=== PATIENT | male | born 1960 | race Caucasian/White ===

== ENCOUNTER 2018-07-08 11:26 | Inpatient (IN) | payer SELFPAY ==
[2018-07-08] MEDS ORDERED: NORMAL SALINE 1000 ML 1,000 ML IV ONE ×2 (11:47→13:08)
--- NOTE | 2018-07-08 11:47 | ER Document Report ---
ED Medical Screen (RME) - General Chief Complaint: Breathing Difficulty Stated Complaint: DIFFICULTY BREATHING Time Seen by Provider: 07/08/18 11:34 TRAVEL OUTSIDE OF THE [place] IN LAST 30 DAYS: No - HPI Patient complains to provider of: Dizziness, diaphoresis, shortness of breath, chest pain/abdominal pain Notes: 07/08/18 11:46 Patient is a 57-year-old male presenting to the emergency room today complaining of shortness of breath, diaphoresis, chest pain/abdominal pain, dizziness, symptoms have been worsening over the past 2-3 days, patient took his blood pressure medication approximately 1 hour prior to coming to the ER 07/08/18 11:47 RAPID MEDICAL EVALUATION DISCLOSURE I have seen this patient as part of a Rapid Medical Evaluation and, if applicable, placed any initially appropriate orders. The patient will be seen and fully evaluated, including a full history and physical exam, by a provider (in Main ED or Fast Track) when a room becomes available. - Related Data Allergies/Adverse Reactions: No Known Allergies Allergy (Verified 07/08/18 11:27) Physical Exam - Vital signs Vitals: Temp Pulse Resp BP Pulse Ox 97.8 F 169 H 20 92/58 L 100 07/08/18 11:35 07/08/18 11:35 07/08/18 11:35 07/08/18 11:35 07/08/18 11:35 Course - Vital Signs Vital signs: Temp Pulse Resp BP Pulse Ox 97.8 F 169 H 20 92/58 L 100 07/08/18 11:35 07/08/18 11:35 07/08/18 11:35 07/08/18 11:35 07/08/18 11:35
[2018-07-08] MEDS ORDERED: DILTIAZEM HCL/D5W 125 MG/125 ML RTUINJ IV ONE ×2 (12:09→22:20)
[2018-07-08] MEDS ORDERED: DILTIAZEM HCL INJ 25 MG/5 ML VIAL ONE (12:09)
[2018-07-08] MEDS ORDERED: DILTIAZEM HCL INJ 25 MG/5 ML VIAL IV ONE (12:10)
[2018-07-08] MEDS ORDERED: DILTIAZEM HCL/D5W 125 MG/125 ML RTUINJ IV PRN (12:10)
--- NOTE | 2018-07-08 12:19 | ER Document Report ---
ED General - General Chief Complaint: Breathing Difficulty Stated Complaint: DIFFICULTY BREATHING Time Seen by Provider: 07/08/18 11:34 Mode of Arrival: Ambulatory Information source: Patient Notes: 57-year-old male brought to the emergency department for complaints of difficulty breathing, lightheadedness, nonproductive cough. Patient states that he had an episode of this on Saturday that resolved. He states that this morning he began having the symptoms again. Patient denies any medical problems besides hypertension. He states that he is on one antihypertensive but does not remember what the name of it is. Patient denies any hyperlipidemia, diabetes, family history of coronary artery disease, history of coronary artery disease in himself, history of stents. He also denies any recent travel, recent surgeries, lower extremity swelling or pain, history of DVT or PE. Patient also notes that he has had intermittent left upper quadrant abdominal pain. He states that he will get the pain it will last a minute and then resolve on its own. He is not currently having any abdominal pain. He denies any nausea, vomiting, diarrhea, constipation, dysuria, hematuria. TRAVEL OUTSIDE OF THE [place] IN LAST 30 DAYS: No - HPI Onset: Just prior to arrival Onset/Duration: Sudden Quality of pain: No pain Severity: None Pain Level: Denies Associated symptoms: Nonproductive cough, Shortness of breath Exacerbated by: Denies Relieved by: Denies Similar symptoms previously: Yes Recently seen / treated by doctor: No - Related Data Allergies/Adverse Reactions: No Known Allergies Allergy (Verified 07/08/18 11:27) Past Medical History - General Information source: Patient - Social History Smoking Status: Unknown if Ever Smoked Chew tobacco use (# tins/day): No Frequency of alcohol use: None Drug Abuse: None Family History: Reviewed & Not Pertinent Patient has suicidal ideation: No Patient has homicidal ideation: No - Past Medical History Cardiac Medical History: Reports: Hx Hypertension Renal/ Medical History: Denies: Hx Peritoneal Dialysis Review of Systems - Review of Systems Constitutional: No symptoms reported EENT: No symptoms reported Cardiovascular: Heart racing, Lightheaded Respiratory: Cough Gastrointestinal: No symptoms reported Genitourinary: No symptoms reported Male Genitourinary: No symptoms reported Musculoskeletal: No symptoms reported Skin: No symptoms reported Hematologic/Lymphatic: No symptoms reported Neurological/Psychological: No symptoms reported -: Yes All other systems reviewed and negative Physical Exam - Vital signs Vitals: Temp Pulse Resp BP Pulse Ox 97.8 F 169 H 20 92/58 L 100 07/08/18 11:35 07/08/18 11:35 07/08/18 11:35 07/08/18 11:35 07/08/18 11:35 - Notes Notes: PHYSICAL EXAMINATION: GENERAL: Well-appearing, well-nourished and in no acute distress. HEAD: Atraumatic, normocephalic. EYES: Pupils equal round and reactive to light, extraocular movements intact, sclera anicteric, conjunctiva are normal. ENT: Nares patent, oropharynx clear without exudates. Moist mucous membranes. NECK: Normal range of motion, supple without lymphadenopathy LUNGS: Breath sounds clear to auscultation bilaterally and equal. No wheezes rales or rhonchi. HEART: Atrial fibrillation. S1S2. ABDOMEN: Soft, nontender, nondistended abdomen. No guarding, no rebound. No masses appreciated. Musculoskeletal: Normal range of motion, no pitting or edema. No cyanosis. NEUROLOGICAL: Cranial nerves grossly intact. Normal speech, normal gait. Normal sensory, motor exams PSYCH: Normal mood, normal affect. SKIN: Warm, Dry, normal turgor, no rashes or lesions noted. Course - Re-evaluation Re-evalutation: 07/08/18 12:19 EKG: Ventricular rate 138, NC interval 0, castration 82, QTc 455, atrial fibrillation. No ST segment elevation. 07/08/18 13:44 EKG: Ventricular rate 98, QRS duration 84, QTc 486, atrial fibrillation. No ischemic changes. 07/08/18 16:28 Repeat EKG: Ventricular rate 73, NC interval 192, castration 82, QTc 349, normal sinus rhythm. No ST segment elevation. 07/08/18 16:50 Labs and imaging obtained. Patient has an elevated BUN and creatinine. Fluids were started. Patient received 2 L of normal saline while in the emergency permit. Troponin is 0.048. No ST segment elevation on the EKG. Patient was given 25 mg of Cardizem bolus and started on a Cardizem drip. Over time patient's rhythm went back into normal sinus rhythm. Patient's d-dimer came back elevated. A VQ scan was ordered. No PE. With the patient's abnormal labs that I will admit the patient to the hospitalist for further workup. Patient states that he does not have a primary care physician. - Vital Signs Vital signs: Temp Pulse Resp BP Pulse Ox 97.8 F 169 H 18 136/80 H 96 07/08/18 11:35 07/08/18 11:35 07/08/18 16:00 07/08/18 14:21 07/08/18 16:00 - Laboratory Result Diagrams: 07/08/18 12:02 07/08/18 12:02 Laboratory results interpreted by me: 07/08/18 07/08/18 07/08/18 12:02 12:02 12:02 WBC 12.0 H D-Dimer 1.35 H Chloride 97 L BUN 53 H Creatinine 5.57 H Est GFR ( Amer) 13 L Est GFR (Non-Af Amer) 11 L Glucose 138 H Direct Bilirubin 0.5 H Urine Blood 07/08/18 15:30 WBC D-Dimer Chloride BUN Creatinine Est GFR ( Amer) Est GFR (Non-Af Amer) Glucose Direct Bilirubin Urine Blood SMALL H Discharge - Discharge Clinical Impression: Atrial fibrillation Qualifiers: Atrial fibrillation type: unspecified Qualified Code(s): I48.91 - Unspecified atrial fibrillation Renal failure Qualifiers: Renal failure chronicity: acute Acute renal failure type: unspecified Qualified Code(s): N17.9 - Acute kidney failure, unspecified Condition: Stable Disposition: ADMITTED OBSERVATION Admitting Provider: Hospitalist Unit Admitted: [facility]
[2018-07-08 12:30] LABS: ABSOLUTE BASOPHILS # (AUTO) 0.1 10^3/uL (0.0-0.2); ABSOLUTE EOSINOPHILS # (AUTO) 0.1 10^3/uL (0.0-0.6); ABSOLUTE LYMPHOCYTES (AUTO) 2.6 10^3/uL (0.5-4.7); ABSOLUTE MONOCYTES (AUTO) 1.2 10^3/uL (0.1-1.4); EOSINOPHILS % (AUTO) 1.1 % (0-6); HEMOGLOBIN 14.2 g/dL (13.5-17.0); LYMPHOCYTES % (AUTO) 21.4 % (13-45); MEAN CORPUSCULAR HEMOGLOBIN 29.8 pg (27.0-33.4); MEAN CORPUSCULAR HGB CONC 34.6 g/dL (32.0-36.0); MEAN CORPUSCULAR VOLUME 86 fl (80-97); MONOCYTES % (AUTO) 10.3 % (3-13); PLATELET COUNT 320 10^3/uL (150-450); RED BLOOD COUNT 4.76 10^6/uL (4.35-5.55); RED CELL DISTRIBUTION WIDTH 13.5 % (11.5-14.0); SEGMENTED NEUTROPHILS % (AUTO) 66.2 % (42-78); TOTAL CELLS COUNTED % (AUTO) 100 %
[2018-07-08 12:33] LABS: INTERNATIONAL RATION (INR) 0.96; PROTHROMBIN TIME 13.3 SEC (11.4-15.4)
[2018-07-08 12:34] LABS: PARTIAL THROMBOPLASTIN TIME 31.2 SEC (23.5-35.8)
[2018-07-08 12:36] LABS: D-DIMER 1.35 ug/mL (0.00-0.50)
[2018-07-08 12:54] LABS: ALANINE AMINOTRANSFERASE 29 U/L (21-72); ALBUMIN 4.6 g/dL (3.5-5.0); ALKALINE PHOSPHATASE 88 U/L (38-126); ANION GAP 19 (5-19); ASPARTATE AMINO TRANSFERASE 27 U/L (17-59); BILIRUBIN,DIRECT 0.5 mg/dL (0.0-0.4); BILIRUBIN,TOTAL 0.8 mg/dL (0.2-1.3); BLOOD UREA NITROGEN 53 mg/dL (7-20); CALCIUM 9.2 mg/dL (8.4-10.2); CARBON DIOXIDE 23 mmol/L (22-30); CHLORIDE 97 mmol/L (98-107); GLUCOSE 138 mg/dL (75-110); LIPASE 72.6 U/L (23-300); POTASSIUM 3.8 mmol/L (3.6-5.0); SODIUM 138.7 mmol/L (137-145); TOTAL PROTEIN 7.6 g/dL (6.3-8.2)
[2018-07-08 13:06] LABS: TROPONIN I 0.048 ng/mL
--- NOTE | 2018-07-08 13:09 | RADIOLOGY REPORT (SQ) ---
EXAM DESCRIPTION: CHEST 2 VIEWS COMPLETED DATE/TIME: 07/08/2018 12:59 pm REASON FOR STUDY: cp COMPARISON: None. EXAM PARAMETERS: NUMBER OF VIEWS: two views TECHNIQUE: Digital Frontal and Lateral radiographic views of the chest acquired. RADIATION DOSE: NA LIMITATIONS: none FINDINGS: LUNGS AND PLEURA: No opacities, masses or pneumothorax. No pleural effusion. MEDIASTINUM AND HILAR STRUCTURES: No masses or contour abnormalities. HEART AND VASCULAR STRUCTURES: Heart normal size. No evidence for failure. BONES: No acute findings. HARDWARE: None in the chest. OTHER: No other significant finding. IMPRESSION: NO ACUTE RADIOGRAPHIC FINDING IN THE CHEST. TECHNICAL DOCUMENTATION: JOB ID: [id number] [email or web address]- All Rights Reserved Reading location - IP/workstation name: [email or web address]
[2018-07-08 15:54] LABS: APPEARANCE,URINE CLOUDY; BILIRUBIN,URINE NEGATIVE (NEGATIVE); COLOR,URINE YELLOW; GLUCOSE, URINE NEGATIVE (NEGATIVE); KETONES,URINE NEGATIVE (NEGATIVE); LEUKOCYTE ESTERASE,URINE NEGATIVE (NEGATIVE); NITRITE,URINE NEGATIVE (NEGATIVE); PROTEIN,URINE NEGATIVE (NEGATIVE); URINE SPECIFIC GRAVITY 1.009; UROBILINOGEN,URINE NEGATIVE mg/dL (<2.0)
--- NOTE | 2018-07-08 15:59 | EKG REPORT ---
SEVERITY:- ABNORMAL ECG - ATRIAL FIBRILLATION, V-RATE 68-140 BORDERLINE PROLONGED QT INTERVAL : Confirmed by: Renny Romero MD 08-Jul-2018 15:58:14
--- NOTE | 2018-07-08 15:59 | EKG REPORT ---
SEVERITY:- ABNORMAL ECG - ATRIAL FIBRILLATION, V-RATE 116-174 BORDERLINE LEFT AXIS DEVIATION : Confirmed by: Renny Romero MD 08-Jul-2018 15:58:43
--- NOTE | 2018-07-08 16:32 | RADIOLOGY REPORT (SQ) ---
EXAM DESCRIPTION: NM LUNG VENT/PERF SCAN COMPLETED DATE/TIME: 07/08/2018 4:24 pm REASON FOR STUDY: shortness of breath COMPARISON: None. RADIONUCLIDE AND DOSE: 5.0 millicuries TC-99m MAA Intravenous 30.0 millicuries TC-99m DTPA Inhaled aerosol TECHNIQUE: Eight views of the lungs acquired post ventilation of DTPA aerosol. Eight matching views of the lungs acquired following injection of MAA. LIMITATIONS: None. FINDINGS: VENTILATION: Symmetric and homogeneous distribution of DTPA aerosol during ventilatory pha se. No significant areas of photopenia. PERFUSION: Perfusion images with normal homogenous activity and no wedge-shaped or segmental defects. No ventilation-perfusion mismatches. OTHER: No other significant finding. IMPRESSION: Normal scintigraphic pulmonary ventilation perfusion scan (PE absent). TECHNICAL DOCUMENTATION: JOB ID: [id number] [employer]- All Rights Reserved Reading location - IP/workstation name: [email or web address]
[2018-07-08] MEDS ORDERED: HEPARIN SODIUM,PORCINE/D5W 25,000 UNIT/250 ML RTUINJ IV PRN (17:40)
[2018-07-08] MEDS ORDERED: HEPARIN SOD (PORCINE) 1,000 UNIT/ML 10 ML VIAL IV ONE (17:40)
[2018-07-08 18:41] LABS: ANION GAP 14 (5-19); BLOOD UREA NITROGEN 46 mg/dL (7-20); CALCIUM 8.8 mg/dL (8.4-10.2); CARBON DIOXIDE 26 mmol/L (22-30); CHLORIDE 100 mmol/L (98-107); GLUCOSE 126 mg/dL (75-110); POTASSIUM 3.8 mmol/L (3.6-5.0); SODIUM 140.1 mmol/L (137-145)
--- NOTE | 2018-07-08 19:25 | RADIOLOGY REPORT (SQ) ---
EXAM DESCRIPTION: CT ABD/PELVIS NO ORAL OR IV COMPLETED DATE/TIME: 07/08/2018 5:57 pm REASON FOR STUDY: acute renal failure COMPARISON: None. TECHNIQUE: CT scan of the abdomen and pelvis performed without intravenous or oral contrast. Images reviewed with lung, soft tissue, and bone windows. Reconstructed coronal and sagittal MPR images revi ewed. All images stored on PACS. All CT scanners at this facility use dose modulation, iterative reconstruction, and/or weight based d osing when appropriate to reduce radiation dose to as low as reasonably achievable (ALARA). [facility]: Dose Right [facility]: CareDose [facility]: Dose Right [facility]: Teradose 4D [facility]: Smart Microbonds RADIATION DOSE: CT Rad equipment meets quality standard of care and radiation dose reduction techniq ues were employed. CTDIvol: 11.5 mGy. DLP: 676 mGy-cm.mGy. LIMITATIONS: None. FINDINGS: LOWER CHEST: No significant findings. No nodules or infiltrates. NON-CONTRASTED LIVER, SPLEEN, ADRENALS: Evaluation limited by lack of IV contrast. No identified sign ificant masses. PANCREAS: No masses. No peripancreatic inflammatory changes. GALLBLADDER: No identified stones by CT criteria. No inflammatory changes to suggest cholecystitis. RIGHT KIDNEY AND URETER: No suspicious masses. Assessment limited by lack of IV contrast. No signif icant calcifications. No hydronephrosis or hydroureter. LEFT KIDNEY AND URETER: No suspicious masses. Assessment limited by lack of IV contrast. No signifi cant calcifications. No hydronephrosis or hydroureter. AORTA AND RETROPERITONEUM: No aneurysm. No retroperitoneal masses or adenopathy. BOWEL AND PERITONEAL CAVITY: No obvious masses or inflammatory changes. No free fluid. APPENDIX: Normal. PELVIS, BLADDER, AND ABDOMINAL WALL:No abnormal masses. No free fluid. Bladder normal. BONES: No significant findings. OTHER: No other significant finding. IMPRESSION: NO SIGNIFICANT OR ACUTE PROCESS IN THE ABDOMEN OR PELVIS. COMMENT: Quality ID # [id number]: Final reports with documentation of one or more dose reduction techniques (e.g., Automated exposure control, adjustment of the mA and/or kV according to patient size, use of iterative reconstruction technique) TECHNICAL DOCUMENTATION: JOB ID: [id number] [employer]- All Rights Reserved Reading location - IP/workstation name: [email or web address]
[2018-07-08] MEDS: NORMAL SALINE 1000 ML 1,000 ML IV PRN (19:50)
[2018-07-08] MEDS ORDERED: HEPARIN SOD (PORCINE) 1,000 UNIT/ML 10 ML VIAL IV PRN (20:42)
[2018-07-09 01:57] LABS: HEMATOCRIT 36.3 % (37.9-51.0); HEMOGLOBIN 12.7 g/dL (13.5-17.0); MEAN CORPUSCULAR HEMOGLOBIN 30.2 pg (27.0-33.4); MEAN CORPUSCULAR HGB CONC 35.1 g/dL (32.0-36.0); MEAN CORPUSCULAR VOLUME 86 fl (80-97); PLATELET COUNT 249 10^3/uL (150-450); RED BLOOD COUNT 4.22 10^6/uL (4.35-5.55); RED CELL DISTRIBUTION WIDTH 13.7 % (11.5-14.0); WHITE BLOOD COUNT 7.7 10^3/uL (4.0-10.5)
--- NOTE | 2018-07-09 08:13 | EKG REPORT ---
SEVERITY:- BORDERLINE ECG - SINUS RHYTHM DIFFUSE NONSPECIFIC ST-T CAHNGES ANTEROLATERAL LEADS : Confirmed by: Renny Romero MD 09-Jul-2018 08:12:06
[2018-07-09] MEDS: METOPROLOL TARTRATE 25 MG TABLET PO SCH ×2 (08:31→21:30)
[2018-07-09 09:07] LABS: ABSOLUTE BASOPHILS # (AUTO) 0.1 10^3/uL (0.0-0.2); ABSOLUTE EOSINOPHILS # (AUTO) 0.1 10^3/uL (0.0-0.6); ABSOLUTE LYMPHOCYTES (AUTO) 2.2 10^3/uL (0.5-4.7); ABSOLUTE MONOCYTES (AUTO) 0.6 10^3/uL (0.1-1.4); ABSOLUTE NEUT (AUTO) 3.8 10^3/uL (1.7-8.2); EOSINOPHILS % (AUTO) 2.1 % (0-6); HEMATOCRIT 35.2 % (37.9-51.0); HEMOGLOBIN 12.4 g/dL (13.5-17.0); LYMPHOCYTES % (AUTO) 32.6 % (13-45); MEAN CORPUSCULAR HEMOGLOBIN 30.3 pg (27.0-33.4); MEAN CORPUSCULAR HGB CONC 35.2 g/dL (32.0-36.0); MEAN CORPUSCULAR VOLUME 86 fl (80-97); MONOCYTES % (AUTO) 9.2 % (3-13); PLATELET COUNT 247 10^3/uL (150-450); RED CELL DISTRIBUTION WIDTH 13.4 % (11.5-14.0); SEGMENTED NEUTROPHILS % (AUTO) 55.1 % (42-78); TOTAL CELLS COUNTED % (AUTO) 100 %; WHITE BLOOD COUNT 6.8 10^3/uL (4.0-10.5)
[2018-07-09 09:16] LABS: ANION GAP 9 (5-19); BLOOD UREA NITROGEN 37 mg/dL (7-20); CALCIUM 8.7 mg/dL (8.4-10.2); CARBON DIOXIDE 24 mmol/L (22-30); CHLORIDE 107 mmol/L (98-107); GLUCOSE 136 mg/dL (75-110); POTASSIUM 4.2 mmol/L (3.6-5.0); SODIUM 140.2 mmol/L (137-145)
--- NOTE | 2018-07-09 12:54 | PDOC H&P ---
History of Present Illness Admission Date/PCP: 07/08/18 17:09 Patient complains of: SOB, palpitations History of Present Illness: DEYSI LARA is a 57 year old male with a history of bipolar disorder and hypertension (unable to recall antihypertensive he is on) who presented with sudden onset palpitations around 7 am today associated with shortness of breath and dizziness. He says he also became sweaty. He denies having chest pain. In the ER, he was noted to be in Afib w/ RVR with Hr in the 150s, initial BP of 98/60. He was given cardizem bolus and was started on a cardizem drip. He converted to sinus rhythm while on the cardizem drip. Upon encounter, he denies chest pain or SOB. He denies prior history of Afib but says he had chronic on and off palpitations and has been treated for anxiety and panic attacks before. Past Medical History Cardiac Medical History: Reports: Hypertension Social History Smoking Status: Unknown if Ever Smoked Family History Family History: Reviewed & Not Pertinent Parental Family History Reviewed: Yes - no premature CAD Children Family History Reviewed: No Sibling(s) Family History Reviewed.: No Medication/Allergy Home Medications: Lisinopril [Prinivil] 20 mg PO DAILY 07/08/18 Allergies/Adverse Reactions: No Known Allergies Allergy (Verified 07/08/18 11:27) Review of Systems All systems: reviewed and no additional remarkable complaints except as stated - as mentioned above Physical Exam Vital Signs: Temp Pulse Resp BP Pulse Ox 97.8 F 169 H 25 H 148/68 H 98 07/08/18 11:35 07/08/18 11:35 07/08/18 17:06 07/08/18 17:06 07/08/18 17:06 Intake & Output 07/07/18 07/08/18 07/09/18 06:59 06:59 06:59 Intake Total 1044 Balance 1044 Weight 246 lb 0.574 oz General appearance: PRESENT: no acute distress, well-developed, well-nourished Head exam: PRESENT: atraumatic, normocephalic Eye exam: PRESENT: conjunctiva pink, EOMI, PERRLA. ABSENT: scleral icterus Ear exam: PRESENT: normal external ear exam Mouth exam: PRESENT: moist, tongue midline Neck exam: ABSENT: carotid bruit, JVD, lymphadenopathy, thyromegaly Respiratory exam: PRESENT: clear to auscultation carla. ABSENT: rales, rhonchi, wheezes Cardiovascular exam: PRESENT: RRR. ABSENT: diastolic murmur, rubs, systolic murmur GI/Abdominal exam: PRESENT: normal bowel sounds, soft. ABSENT: distended, gu arding, mass, organolmegaly, rebound, tenderness Rectal exam: PRESENT: deferred Neurological exam: PRESENT: alert, awake, oriented to person, oriented to place, oriented to time, oriented to situation, CN II-XII grossly intact. ABSENT: motor sensory deficit Results Laboratory Results: 07/08/18 12:02 07/08/18 12:02 07/08/18 07/08/18 07/08/18 12:02 12:02 12:02 WBC 12.0 H RBC 4.76 Hgb 14.2 Hct 41.0 MCV 86 MCH 29.8 MCHC 34.6 RDW 13.5 Plt Count 320 Seg Neutrophils % 66.2 Lymphocytes % 21.4 Monocytes % 10.3 Eosinophils % 1.1 Basophils % 1.0 Absolute Neutrophils 8.0 Absolute Lymphocytes 2.6 Absolute Monocytes 1.2 Absolute Eosinophils 0.1 Absolute Basophils 0.1 Sodium 138.7 Potassium 3.8 Chloride 97 L Carbon Dioxide 23 Anion Gap 19 BUN 53 H Creatinine 5.57 H Est GFR ( Amer) 13 L Est GFR (Non-Af Amer) 11 L Glucose 138 H Lactic Acid 1.6 Calcium 9.2 Total Bilirubin 0.8 AST 27 ALT 29 Alkaline Phosphatase 88 Total Protein 7.6 Albumin 4.6 Lipase 72.6 Urine Color Urine Appearance Urine pH Ur Specific [place] Urine Protein Urine Glucose (UA) Urine Ketones Urine Blood Urine Nitrite Ur Leukocyte Esterase Urine WBC (Auto) Urine RBC (Auto) 07/08/18 15:30 WBC RBC Hgb Hct MCV MCH MCHC RDW Plt Count Seg Neutrophils % Lymphocytes % Monocytes % Eosinophils % Basophils % Absolute Neutrophils Absolute Lymphocytes Absolute Monocytes Absolute Eosinophils Absolute Basophils Sodium Potassium Chloride Carbon Dioxide Anion Gap BUN Creatinine Est GFR ( Amer) Est GFR (Non-Af Amer) Glucose Lactic Acid Calcium Total Bilirubin AST ALT Alkaline Phosphatase Total Protein Albumin Lipase Urine Color YELLOW Urine Appearance CLOUDY Urine pH 5.0 Ur Specific [place] 1.009 Urine Protein NEGATIVE Urine Glucose (UA) NEGATIVE Urine Ketones NEGATIVE Urine Blood SMALL H Urine Nitrite NEGATIVE Ur Leukocyte Esterase NEGATIVE Urine WBC (Auto) 4 Urine RBC (Auto) 1 07/08/18 12:02 Troponin I 0.048 NT-Pro-B Natriuret Pep 216 Impressions: Chest X-Ray 07/08/18 11:45 IMPRESSION: NO ACUTE RADIOGRAPHIC FINDING IN THE CHEST. Lung Scan-VQ NM 07/08/18 13:07 IMPRESSION: Normal scintigraphic pulmonary ventilation perfusion scan (PE absent). Assessment & Plan - Diagnosis (1) Atrial fibrillation Qualifiers: Atrial fibrillation type: unspecified Qualified Code(s): I48.91 - Unspecified atrial fibrillation Is this a current diagnosis for this admission?: Yes Plan: Patient denies prior history of Afib. CHADVASC of 1 (low moderate risk-a ntiplatelet or anticoagulation). Reduce cardizem drip rate from 10 to 5. Will check TSH. No ischemic changes on EKG after converting to sinus rhythm. Discussed risks and benefits of anticoagulation. Patient prefers to be on anticoagulation. Will keep him on heparin for now due to his renal function. (2) Acute renal failure Is this a current diagnosis for this admission?: Yes Plan: Prerenal vs interstitial nephiritis from NSAIDs. Patient says he had blood work more than a year ago and was told it was unremarkable. He does admit to taking a lot of NSAIDs (advil and naproxen) at home for his chronic low back pain. He also says he does not drink water and only consumes soda for his fluid intake. Will repeat BMP. Will order a CT of the abdomen/pelvis to rule out obstructive cause. - Time Time Spent: 30 to 50 Minutes
--- NOTE | 2018-07-09 12:58 | PDOC PROGRESS REPORT ---
Subjective Progress Note for:: 07/09/18 Subjective:: This is a 57 year old male with a history of bipolar disorder and hypertension who presented with sudden onset palpitations around 7 am today associated with shortness of breath and dizziness. He says he also became sweaty. He denies having chest pain. In the ER, he was noted to be in Afib w/ RVR with Hr in the 150s, initial BP of 98/60. He was given cardizem bolus and was started on a cardizem drip. He converted to sinus rhythm while on the cardizem drip. No acute event overnight. No recurrence of SOB. He denies chest pain. Reason For Visit: AFIB WITH RVR,KUMAR Physical Exam Vital Signs: Temp Pulse Resp BP Pulse Ox 98.5 F 54 L 16 97/53 L 93 07/09/18 11:10 07/09/18 11:10 07/09/18 11:10 07/09/18 11:10 07/09/18 11:10 Intake & Output 07/08/18 07/09/18 07/10/18 06:59 06:59 06:59 Intake Total 1166 Balance 1166 Weight 246 lb 0.574 oz General appearance: PRESENT: no acute distress, well-developed, well-nourished Head exam: PRESENT: atraumatic, normocephalic Eye exam: PRESENT: conjunctiva pink, EOMI, PERRLA. ABSENT: scleral icterus Ear exam: PRESENT: normal external ear exam Mouth exam: PRESENT: moist, tongue midline Neck exam: ABSENT: carotid bruit, JVD, lymphadenopathy, thyromegaly Respiratory exam: PRESENT: clear to auscultation carla. ABSENT: rales, rhonchi, wheezes Cardiovascular exam: PRESENT: RRR. ABSENT: diastolic murmur, rubs, systolic murmur Pulses: PRESENT: normal dorsalis pedis pul GI/Abdominal exam: PRESENT: normal bowel sounds, soft. ABSENT: distended, guarding, mass, organolmegaly, rebound, tenderness Rectal exam: PRESENT: deferred Neurological exam: PRESENT: alert, awake, oriented to person, oriented to place, oriented to time, oriented to situation, CN II-XII grossly intact. ABSENT: mo tor sensory deficit Results Laboratory Results: 07/09/18 08:34 07/09/18 08:34 07/08/18 07/08/18 07/08/18 12:02 12:02 15:30 WBC RBC Hgb Hct MCV MCH MCHC RDW Plt Count Seg Neutrophils % Lymphocytes % Monocytes % Eosinophils % Basophils % Absolute Neutrophils Absolute Lymphocytes Absolute Monocytes Absolute Eosinophils Absolute Basophils Sodium 138.7 Potassium 3.8 Chloride 97 L Carbon Dioxide 23 Anion Gap 19 BUN 53 H Creatinine 5.57 H Est GFR ( Amer) 13 L Est GFR (Non-Af Amer) 11 L Glucose 138 H Calcium 9.2 Total Bilirubin 0.8 AST 27 ALT 29 Alkaline Phosphatase 88 Total Protein 7.6 Albumin 4.6 Lipase 72.6 TSH 5.56 H Urine Color YELLOW Urine Appearance CLOUDY Urine pH 5.0 Ur Specific [place] 1.009 Urine Protein NEGATIVE Urine Glucose (UA) NEGATIVE Urine Ketones NEGATIVE Urine Blood SMALL H Urine Nitrite NEGATIVE Ur Leukocyte Esterase NEGATIVE Urine WBC (Auto) 4 Urine RBC (Auto) 1 07/08/18 07/09/18 07/09/18 18:10 01:50 08:34 WBC 7.7 6.8 RBC 4.22 L 4.10 L Hgb 12.7 L 12.4 L Hct 36.3 L 35.2 L MCV 86 86 MCH 30.2 30.3 MCHC 35.1 35.2 RDW 13.7 13.4 Plt Count 249 247 Seg Neutrophils % 55.1 Lymphocytes % 32.6 Monocytes % 9.2 Eosinophils % 2.1 Basophils % 1.0 Absolute Neutrophils 3.8 Absolute Lymphocytes 2.2 Absolute Monocytes 0.6 Absolute Eosinophils 0.1 Absolute Basophils 0.1 Sodium 140.1 Potassium 3.8 Chloride 100 Carbon Dioxide 26 Anion Gap 14 BUN 46 H Creatinine 3.53 H Est GFR ( Amer) 22 L Est GFR (Non-Af Amer) 18 L Glucose 126 H Calcium 8.8 Total Bilirubin AST ALT Alkaline Phosphatase Total Protein Albumin Lipase TSH Urine Color Urine Appearance Urine pH Ur Specific [place] Urine Protein Urine Glucose (UA) Urine Ketones Urine Blood Urine Nitrite Ur Leukocyte Esterase Urine WBC (Auto) Urine RBC (Auto) 07/09/18 08:34 WBC RBC Hgb Hct MCV MCH MCHC RDW Plt Count Seg Neutrophils % Lymphocytes % Monocytes % Eosinophils % Basophils % Absolute Neutrophils Absolute Lymphocytes Absolute Monocytes Absolute Eosinophils Absolute Basophils Sodium 140.2 Potassium 4.2 Chloride 107 Carbon Dioxide 24 Anion Gap 9 BUN 37 H Creatinine 1.38 H Est GFR ( Amer) > 60 Est GFR (Non-Af Amer) 53 L Glucose 136 H Calcium 8.7 Total Bilirubin AST ALT Alkaline Phosphatase Total Protein Albumin Lipase TSH Urine Color Urine Appearance Urine pH Ur Specific [place] Urine Protein Urine Glucose (UA) Urine Ketones Urine Blood Urine Nitrite Ur Leukocyte Esterase Urine WBC (Auto) Urine RBC (Auto) 07/08/18 12:02 Troponin I 0.048 NT-Pro-B Natriuret Pep 216 Impressions: Chest X-Ray 07/08/18 11:45 IMPRESSION: NO ACUTE RADIOGRAPHIC FINDING IN THE CHEST. Lung Scan-VQ NM 07/08/18 13:07 IMPRESSION: Normal scintigraphic pulmonary ventilation perfusion scan (PE absent). Abdomen/Pelvis CT 07/08/18 17:35 IMPRESSION: NO SIGNIFICANT OR ACUTE PROCESS IN THE ABDOMEN OR PELVIS. Assessment & Plan - Diagnosis (1) Atrial fibrillation Qualifiers: Atrial fibrillation type: unspecified Qualified Code(s): I48.91 - Unspecified atrial fibrillation Is this a current diagnosis for this admission?: Yes Plan: Currently in sinus rhythm. Patient denies prior history of Afib but does report prior intermittent palpitations. CHADVASC of 1 (low moderate risk-antiplatelet or anticoagulation). Discussed risks and benefits of anticoagulation. Patient prefers to be on anticoagulation. Discontinue cardizem drip. Switched to PO Lopressor. Discontinue heparin drip and switch to Xarelto. (2) Acute renal failure Is this a current diagnosis for this admission?: Yes Plan: Prerenal vs interstitial nephiritis from NSAIDs. Patient says he had blood work more than a year ago and was told it was unremarkable. He does admit to taking a lot of NSAIDs (advil and naproxen) at home for his chronic low back pain. He also says he does not drink water and only consumes soda for his fluid intake. Improving. Creatinine has improved to 1.3 with IV fluids. Possible pre-renal from dehydration. (3) HTN (hypertension) Is this a current diagnosis for this admission?: Yes Plan: PAtient is now able to recall he takes lisinopril at home. Hold off on lisinopril for now as his pressures are in the low normal end with PO Lopressor. - Time Time Spent with patient: 25-34 minutes
[2018-07-09] MEDS ORDERED: RIVAROXABAN 15 MG TABLET PO SCH (17:00)
[2018-07-09] MEDS: NORMAL SALINE 1000 ML 1,000 ML IV PRN (18:15)
--- NOTE | 2018-07-09 20:36 | PDOC CONSULTATION ---
Consultation Consult Date: 07/09/18 Attending physician:: CITLALY BAKER Consult reason:: I was asked to see the patient due to acute renal failure. History of Present Illness Admission Date/PCP: 07/08/18 17:33 History of Present Illness: DEYSI LARA is a 57 year old male with history of hypertension who was admitted yesterday because of sudden onset of shortness of breath, diaphoresis, dizziness and palpitations. Patient related that over the weekend last Saturday he started not feeling very good. He has some low back pain and took some [id number] medications. Yesterday he went to work and suddenly started feeling diaphoretic associated with shortness of breath and palpitations so he drove himself to the emergency room. He denies any chest pains. He was then found to be in atrial fibrillation with rapid ventricular response and low blood pressure of 98/60. He was treated with Cardizem drip and is currently converted to normal sinus rhythm. His initial kidney function showed a BUN of 53, creatinine of 5.57 with estimated GFR of 11. Patient was also given IV fluids aside from Cardizem drip. Today he has a BUN of 37, creatinine of 1.38 with estimated GFR of 53. His urine showed only small blood with no protein. He was given 2 L of IV fluid boluses initially and is currently on normal saline at 125 mL an hour. Patient denies any previous history of kidney disease or kidney stones. He did take ibuprofen over the weekend for his low back pain which for a total of 8-9 tablets for just a couple of days. He has decreased oral intake since the weekend and just drank some Pepsi. He denies any history of hepatitis, any other new medications or administration of contrast. He notices left lower quadrant lump. He denies any problems with urination including dysuria, gross hematuria, no note of any foamy urine. He did notice some dark urine though. Today he said he felt much better than when he came in. Past Medical History Cardiac Medical History: Reports: Hypertension-primary Malignancy Medical History: Reports: Skin Cancer - Just recently had facial excision of cancer Past Surgical History Past Surgical History: Reports: Other - Facial skin excision of cancer Social History Information Source: Patient Lives with: Spouse/Significant other Smoking Status: Never Smoker Frequency of Alcohol Use: None Hx Recreational Drug Use: No Hx Prescription Drug Abuse: No - Advance Directive Resuscitation Status: Full Code Family History Family History: DM - Sister Parental Family History Reviewed: Yes Children Family History Reviewed: Yes Sibling(s) Family History Reviewed.: Yes Medication/Allergy Home Medications: Lisinopril [Prinivil] 20 mg PO DAILY 07/08/18 Allergies/Adverse Reactions: No Known Allergies Allergy (Verified 07/08/18 11:27) Review of Systems All systems: reviewed and no additional remarkable complaints except as stated Review of Systems: Constitutional: ABSENT: chills, fatigue, fever(s), headache(s), weight gain, weight loss Eyes: ABSENT: visual disturbances Ears: ABSENT: hearing changes Cardiovascular: ABSENT: chest pain, edema, orthropnea; admits shortness of breath and palpitations Respiratory: ABSENT: cough, dyspnea, hemoptysis Gastrointestinal: ABSENT: abdominal pain, constipation, diarrhea, hematemesis, hematochezia, vomiting; admits nausea Genitourinary: ABSENT: dysuria, hematuria Musculoskeletal: ABSENT: joint swelling Integumentary: ABSENT: rash, wounds Neurological: ABSENT: abnormal gait, abnormal speech, confusion, focal weakness, numbness, syncope; admits dizziness initially Psychiatric: ABSENT: anxiety, depression Endocrine: ABSENT: cold intolerance, heat intolerance, polydipsia, polyuria Hematologic/Lymphatic: ABSENT: easy bleeding, easy bruising, lymphadenopathy Physical Exam Vital Signs: Temp Pulse Resp BP Pulse Ox 98.4 F 58 L 18 117/69 94 07/09/18 15:04 07/09/18 15:04 07/09/18 15:04 07/09/18 15:04 07/09/18 15:04 Intake & Output 07/08/18 07/09/18 07/10/18 06:59 06:59 06:59 Intake Total 2166 381 Output Total 575 Balance 2166 -194 Weight 111.6 kg Exam: General appearance: No acute distress, cooperative, well-developed, well- nourished Head exam: PRESENT: atraumatic, normocephalic Eye exam: PRESENT: Conjunctiva Lindy, EOMI, PERRLA. ABSENT: conjunctival injection, scleral icterus Mouth exam: PRESENT: moist, neck supple, tongue midline Neck exam: PRESENT: full ROM. ABSENT: carotid bruit, JVD, lymphadenopathy, thyromegaly Respiratory exam: PRESENT: clear to auscultation bilaterally. ABSENT: rales, rhonchi, stridor, wheezes Cardiovascular exam: PRESENT: RRR, +S1, +S2. ABSENT: systolic murmur Pulses: PRESENT: normal radial pulses, normal dorsalis pedis pulses GI/Abdominal exam: PRESENT: normal bowel sounds, soft. ABSENT: guarding, mass, tenderness Rectal exam: Deferred Extremities exam: PRESENT: full ROM. ABSENT: calf tenderness, pedal edema Musculoskeletal: PRESENT: full ROM. ABSENT: deformity Neurological exam: PRESENT: alert, Awake, Oriented to person, Oriented to place, Oriented to time, reflexes normal, CN II-XII grossly intact. ABSENT: motor sensory deficit Psychiatric exam: PRESENT: appropriate affect, normal mood. ABSENT: homicidal ideation, suicidal ideation Skin exam: PRESENT: intact, dry, warm. ABSENT: rash Results Laboratory Results: 07/09/18 08:34 07/09/18 08:34 07/09/18 07/09/18 07/09/18 01:50 08:34 08:34 WBC 7.7 6.8 RBC 4.22 L 4.10 L Hgb 12.7 L 12.4 L Hct 36.3 L 35.2 L MCV 86 86 MCH 30.2 30.3 MCHC 35.1 35.2 RDW 13.7 13.4 Plt Count 249 247 Seg Neutrophils % 55.1 Lymphocytes % 32.6 Monocytes % 9.2 Eosinophils % 2.1 Basophils % 1.0 Absolute Neutrophils 3.8 Absolute Lymphocytes 2.2 Absolute Monocytes 0.6 Absolute Eosinophils 0.1 Absolute Basophils 0.1 Sodium 140.2 Potassium 4.2 Chloride 107 Carbon Dioxide 24 Anion Gap 9 BUN 37 H Creatinine 1.38 H Est GFR ( Amer) > 60 Est GFR (Non-Af Amer) 53 L Glucose 136 H Calcium 8.7 07/08/18 12:02 Troponin I 0.048 NT-Pro-B Natriuret Pep 216 Impressions: Chest X-Ray 07/08/18 11:45 IMPRESSION: NO ACUTE RADIOGRAPHIC FINDING IN THE CHEST. Lung Scan-VQ NM 07/08/18 13:07 IMPRESSION: Normal scintigraphic pulmonary ventilation perfusion scan (PE absent). Abdomen/Pelvis CT 07/08/18 17:35 IMPRESSION: NO SIGNIFICANT OR ACUTE PROCESS IN THE ABDOMEN OR PELVIS. Assessment & Plan - Diagnosis (1) Acute renal failure Is this a current diagnosis for this admission?: Yes Plan: Most likely secondary to acute prerenal factors due to atrial fibrillation and poor oral intake. Patient improved with IV fluid hydration and controlling atrial fibrillation. If ever he has underlying chronic kidney disease it is mostly secondary to hypertension. Monitor kidney function at this point. (2) Atrial fibrillation Qualifiers: Atrial fibrillation type: unspecified Qualified Code(s): I48.91 - Unspecified atrial fibrillation Is this a current diagnosis for this admission?: Yes Plan: Initially with rapid ventricular response and currently converted to normal sinus rhythm. (3) HTN (hypertension) Is this a current diagnosis for this admission?: Yes Plan: Well-controlled. (4) Anemia Is this a current diagnosis for this admission?: Yes - Notes Notes: Thank you very much for this consultation. - Time Time Spent: 50 to 70 Minutes
[2018-07-10] MEDS: NORMAL SALINE 1000 ML 1,000 ML IV PRN (06:47)
[2018-07-10 08:15] VITALS: BP 140/69
[2018-07-10] MEDS: METOPROLOL TARTRATE 25 MG TABLET PO SCH (10:27)
[2018-07-10 10:39] LABS: ANION GAP 10 (5-19); BLOOD UREA NITROGEN 19 mg/dL (7-20); CALCIUM 8.5 mg/dL (8.4-10.2); CARBON DIOXIDE 25 mmol/L (22-30); CHLORIDE 106 mmol/L (98-107); GLUCOSE 170 mg/dL (75-110); POTASSIUM 4.3 mmol/L (3.6-5.0); SODIUM 140.8 mmol/L (137-145)
--- NOTE | 2018-07-10 18:18 | PDOC DISCHARGE SUMMARY ---
General - Admit/Disc Date/PCP Admission Date/Primary Care Provider: 07/08/18 17:33 Discharge Date: 07/10/18 - Discharge Diagnosis (1) Atrial fibrillation Is this a current diagnosis for this admission?: Yes (2) Acute renal failure Is this a current diagnosis for this admission?: Yes (3) HTN (hypertension) Is this a current diagnosis for this admission?: Yes - Additional Information Resuscitation Status: Full Code Discharge Diet: Cardiac Discharge Activity: Activity As Tolerated, Balance Activity w/Rest Prescriptions: RX: Metoprolol Tartrate [Lopressor 25 mg Tablet] 25 mg PO Q12 #60 tablet RX: Rivaroxaban [Xarelto 15 mg Tablet] 15 mg PO WSUPPER #30 tablet Home Medications: RX: Metoprolol Tartrate [Lopressor 25 mg Tablet] 25 mg PO Q12 #60 tablet 07/10/18 RX: Rivaroxaban [Xarelto 15 mg Tablet] 15 mg PO WSUPPER #30 tablet 07/10/18 History of Present Illness History of Present Illness: DEYSI LARA is a 57 year old male with a history of bipolar disorder and hypertension (unable to recall antihypertensive he is on) who presented with sudden onset palpitations around 7 am today associated with shortness of breath and dizziness. He says he also became sweaty. He denies having chest pain. In the ER, he was noted to be in Afib w/ RVR with Hr in the 150s, initial BP of 98/60. He was given cardizem bolus and was started on a cardizem drip. He converted to sinus rhythm while on the cardizem drip. Upon encounter, he denies chest pain or SOB. He denies prior history of Afib but says he had chronic on and off palpitations and has been treated for anxiety and panic attacks before. Hospital Course Hospital Course: This is a 57 year old male with a history of bipolar disorder and hypertension who presented with sudden onset palpitations associated with shortness of breat h and dizziness. He says he also became sweaty. He denies having chest pain. In the ER, he was noted to be in Afib w/ RVR with HR in the 150s, initial BP of 98/60. He was given cardizem bolus and was started on a cardizem drip. He converted to sinus rhythm while on the cardizem drip. He was also started on heparin drip. Discussed risks and benefits of anticoagulation. Patient prefers to be on ant icoagulation. Discontinue dcardizem drip and he was switched to PO Lopressor. Discontinued heparin drip and switched to Xarelto. He will ff-up with Dr. Escobar. His heart rate has been optimally controlled with lopressor. He did have KUMAR. He does admit to taking a lot of NSAIDs (advil and naproxen) at home for his chronic low back pain. He also says he does not drink water and only consumes soda for his fluid intake. This resolved with Iv fluids from a creatinine of 5 to 0.8. Physical Exam Vital Signs: Temp Pulse Resp BP Pulse Ox 97.8 F 61 18 140/69 H 97 07/10/18 11:05 07/10/18 11:05 07/10/18 11:05 07/10/18 11:05 07/10/18 11:05 Intake & Output 07/09/18 07/10/18 07/11/18 06:59 06:59 06:59 Intake Total 2166 1501 Output Total 575 Balance 2166 926 Weight 246 lb 0.574 oz 249 lb 9.012 oz General appearance: PRESENT: no acute distress, well-developed, well-nourished Head exam: PRESENT: atraumatic, normocephalic Eye exam: PRESENT: conjunctiva pink, EOMI, PERRLA. ABSENT: scleral icterus Ear exam: PRESENT: normal external ear exam Mouth exam: PRESENT: moist, tongue midline Neck exam: ABSENT: carotid bruit, JVD, lymphadenopathy, thyromegaly Respiratory exam: PRESENT: clear to auscultation carla. ABSENT: rales, rhonchi, wheezes Cardiovascular exam: PRESENT: RRR. ABSENT: diastolic murmur, rubs, systolic murmur Pulses: PRESENT: normal dorsalis pedis pul GI/Abdominal exam: PRESENT: normal bowel sounds, soft. ABSENT: distended, guarding, mass, organolmegaly, rebound, tenderness Rectal exam: PRESENT: deferred Neurological exam: PRESENT: alert, awake, oriented to person, oriented to place, oriented to time, oriented to situation, CN II-XII grossly intact. ABSENT: motor sensory deficit Results Laboratory Results: 07/09/18 08:34 07/10/18 09:30 07/10/18 09:30 Sodium 140.8 Potassium 4.3 Chloride 106 Carbon Dioxide 25 Anion Gap 10 BUN 19 Creatinine 0.86 Est GFR ( Amer) > 60 Est GFR (Non-Af Amer) > 60 Glucose 170 H Calcium 8.5 07/08/18 12:02 Troponin I 0.048 NT-Pro-B Natriuret Pep 216 Impressions: Chest X-Ray 07/08/18 11:45 IMPRESSION: NO ACUTE RADIOGRAPHIC FINDING IN THE CHEST. Lung Scan-VQ NM 07/08/18 13:07 IMPRESSION: Normal scintigraphic pulmonary ventilation perfusion scan (PE absent). Abdomen/Pelvis CT 07/08/18 17:35 IMPRESSION: NO SIGNIFICANT OR ACUTE PROCESS IN THE ABDOMEN OR PELVIS. Qualifiers - * PATIENT BEING DISCHARGED WITH ANY OF THE FOLLOWING DIAGNOSIS: No
== END 2018-07-10 12:51 | disposition home or self-care (01) | DRG 309 ==
LOC: ER 11:26 → EH 17:09 → OBSVTOIN 17:33 → 3N 21:05
PROVIDERS: ADMIT Internal Medicine; ATTEND Internal Medicine
PROC: 3E0234Z Introduction of Serum, Toxoid and Vaccine into Muscle, Percutaneous Approach (ICD-10-PCS; principal; 2018-07-10)
DX: I48.91 Unspecified atrial fibrillation (principal); N17.9 Acute kidney failure, unspecified; I10 Essential (primary) hypertension; M54.89 Other dorsalgia; D64.9 Anemia, unspecified; F31.9 Bipolar disorder, unspecified; Z79.1 Long term (current) use of non-steroidal anti-inflammatories (NSAID); Z23 Encounter for immunization
CPT/HCPCS: 36415; 71046; 74176; 78582; 80048; 80053; 81001; 83605; 83690; 83880; 84443; 84484; 85025; 85027; 85379; 85610; 85730; 87040; 90686; 93005; 93010; 96365; 96366; 96375; 96376; 99285; A9540; A9567; J1644; J3490; J7030; Q9969